=== PATIENT | female | born 1945 | race Caucasian/White ===

== ENCOUNTER → 2019-11-13 | Outpatient (CLI) | payer MEDICARE, OTHER ==
[2019-11-13 10:37] LABS: CLARITY,URINE CLEAR; COLOR,URINE YELLOW; GLUCOSE, URINE (UA) NEGATIVE (NEGATIVE); PROTEIN,URINE NEGATIVE (NEGATIVE)
[2019-11-13 10:38] LABS: BACTERIA,URINE LARGE /HPF; BILIRUBIN,URINE NEGATIVE (NEGATIVE); KETONES,URINE NEGATIVE (NEGATIVE); LEUKOCYTE ESTERASE ,URINE TRACE (NEGATIVE); NITRITE,URINE NEGATIVE (NEGATIVE); RBC,URINE RARE /HPF
== END ==
LOC: LAB FS 09:47
PROVIDERS: ATTEND Family Medicine
DX: R30.9 Painful micturition, unspecified (principal)
CPT/HCPCS: 81000; 87077; 87088; 87186

== ENCOUNTER → 2020-05-10 | Outpatient (CLI) | payer MEDICARE, OTHER ==
[2020-05-10 08:52] LABS: BUN/CREATININE RATIO 9; CARBON DIOXIDE 27 MMOL/L (21-32); CHLORIDE 103 MMOL/L (98-107); CREATININE SERUM 0.87 MG/DL (0.60-1.30); GFR ESTIMATED > 60; GLUCOSE 96 MG/DL (70-105); SODIUM 140 MMOL/L (135-145)
[2020-05-10 08:53] LABS: ALANINE AMINOTRANSFERASE 17 U/L (0-55); ALBUMIN 4.2 GM/DL (3.2-4.5); ALKALINE PHOSPHATASE 82 U/L (40-136); BILIRUBIN,TOTAL 0.6 MG/DL (0.1-1.0); CALCIUM 9.3 MG/DL (8.5-10.1); TOTAL PROTEIN 6.8 GM/DL (6.4-8.2)
[2020-05-10 15:08] LABS: TRIGLYCERIDES 129 MG/DL (<150); VLDL CHOLESTEROL 26 MG/DL (5-40)
[2020-05-10 15:13] LABS: CHOLESTEROL 186 MG/DL (< 200)
[2020-05-10 15:14] LABS: HDL CHOLESTEROL 52 MG/DL (40-60)
== END ==
LOC: LAB FS 08:14
PROVIDERS: ATTEND Family Medicine
DX: E78.2 Mixed hyperlipidemia (principal)
CPT/HCPCS: 36415; 80053; 80061

== ENCOUNTER 2021-12-31 19:31 | Emergency (ER) | payer MEDICARE, OTHER ==
[~2021-12-31] VITALS: Ht 154 cm; Wt 89.8 kg
--- NOTE | 2021-12-31 20:24 | ED Headache ---
General Chief Complaint: Head/Cervical Problems Stated Complaint: WONG,CHILLS,N/V Nursing Triage Note: patient verbalized since yesterday morning. states tylenol helps with the pain. states gets chills. Source: patient Exam Limitations: no limitations History of Present Illness Date Seen by Provider: Dec 31, 2021 Time Seen by Provider: 19:55 Initial Comments Patient to the ER by private conveyance with a chief complaint since 3:30 in the morning yesterday she has had headache, sweatiness, chills, fever, tremors in her arms bilaterally. She has a dry nonproductive cough some shortness of breath but no chest pain. She had some nausea and vomiting x1 episode not to be able to take her Tylenol tonight. She did not want to have another bad night like last night. No diarrhea or abdominal pain. History of lymphedema and GERD. Follows with Dr. Lee. Allergies and Home Medications Allergies Coded Allergies: No Known Drug Allergies (Unverified , 12/31/21) Patient Home Medication List Home Medication List Reviewed: Yes Review of Systems Review of Systems Constitutional: chills, fever, malaise Eyes: Denies Blindness, Denies Drainage (Subjective) Ears, Nose, Mouth, Throat: denies ear pain, denies ear discharge Respiratory: cough; No phlegm, No short of breath Cardiovascular: No chest pain, No edema Gastrointestinal: No abdominal pain, No nausea, No vomiting Genitourinary: No discharge, No dysuria Musculoskeletal: No back pain, No joint pain Past Cwfksma-Etjfev-Czexqe Hx Patient Social History Tobacco Use?: No Use of E-Cig and/or Vaping dev: No Substance use?: No Alcohol Use?: No Immunizations Up To Date Influenza Vaccine Up-to-Date: Yes; Up-to-Date First/Initial COVID19 Vaccinat: 2020 Second COVID19 Vaccination Gregory: 2020 COVID19 Vaccine Make Up Arranger: Modernabdoulaye Past Medical History Surgery/Hospitalization HX: patient verbalized lymphedema upper Physical Exam Vital Signs Vital Signs - First Documented 12/31/21 19:51 Temp 35.2 Pulse 82 Resp 20 B/P (MAP) 146/85 (105) Pulse Ox 96 O2 Delivery Room Air Capillary Refill : Less Than 3 Seconds Height, Weight, BMI Height: '" Weight: lbs. oz. kg; 37.00 BMI Method: General Appearance: WD/WN, no apparent distress HEENT: PERRL/EOMI, normal ENT inspection, TMs normal; No pharynx normal (Dry oral mucosa); other (No tenderness to palpation of the sinuses bilaterally) Neck: non-tender, full range of motion, supple, normal inspection Cardiovascular: normal peripheral pulses, regular rate, rhythm Respiratory: lungs clear, normal breath sounds, no respiratory distress, no accessory muscle use Gastrointestinal: normal bowel sounds, non tender, soft Extremities: normal capillary refill, other (Chronic lymphedema bilateral lower extremities) Psychiatric: alert, oriented x 3 Crainal Nerves: normal hearing, normal speech, PERRL Skin: normal color, warm/dry Progress/Results/Core Measures Results/Orders Lab Results Laboratory Tests Test 12/31/21 20:03 12/31/21 21:05 Range/Units Influenza Type A (RT-PCR) Not Detected Not Detecte Influenza Type B (RT-PCR) Not Detected Not Detecte SARS-CoV-2 RNA (RT-PCR) Not Detected Not Detecte White Blood Count 8.7 4.3-11.0 10^3/uL Red Blood Count 4.48 3.80-5.11 10^6/uL Hemoglobin 13.7 11.5-16.0 g/dL Hematocrit 41 35-52 % Mean Corpuscular Volume 90 80-99 fL Mean Corpuscular Hemoglobin 31 25-34 pg Mean Corpuscular Hemoglobin Concent 34 32-36 g/dL Red Cell Distribution Width 14.2 10.0-14.5 % Platelet Count 153 130-400 10^3/uL Mean Platelet Volume 9.9 9.0-12.2 fL Immature Granulocyte % (Auto) 0 % Neutrophils (%) (Auto) 79 H 42-75 % Lymphocytes (%) (Auto) 12 12-44 % Monocytes (%) (Auto) 8 0-12 % Eosinophils (%) (Auto) 0 0-10 % Basophils (%) (Auto) 1 0-10 % Neutrophils # (Auto) 6.8 1.8-7.8 10^3/uL Lymphocytes # (Auto) 1.0 1.0-4.0 10^3/uL Monocytes # (Auto) 0.7 0.0-1.0 10^3/uL Eosinophils # (Auto) 0.0 0.0-0.3 10^3/uL Basophils # (Auto) 0.0 0.0-0.1 10^3/uL Immature Granulocyte # (Auto) 0.0 0.0-0.1 10^3/uL Urine Color ORANGE Urine Clarity CLEAR Urine pH 6.0 5-9 Urine Specific Newcomb 1.015 L 1.016-1.022 Urine Protein 1+ H NEGATIVE Urine Glucose (UA) NEGATIVE NEGATIVE Urine Ketones NEGATIVE NEGATIVE Urine Nitrite POSITIVE H NEGATIVE Urine Bilirubin NEGATIVE NEGATIVE Urine Urobilinogen 1.0 < = 1.0 MG/DL Urine Leukocyte Esterase 1+ H NEGATIVE Urine RBC (Auto) 1+ H NEGATIVE Urine RBC RARE /HPF Urine WBC 10-25 H /HPF Urine Squamous Epithelial Cells 0-2 /HPF Urine Renal Epithelial Cells RARE /HPF Urine Crystals NONE /LPF Urine Bacteria FEW H /HPF Urine Casts NONE /LPF Urine Mucus NEGATIVE /LPF Urine Culture Indicated YES Sodium Level 140 135-145 MMOL/L Potassium Level 3.5 L 3.6-5.0 MMOL/L Chloride Level 108 H 98-107 MMOL/L Carbon Dioxide Level 17 L 21-32 MMOL/L Anion Gap 15 H 5-14 MMOL/L Blood Urea Nitrogen 8 7-18 MG/DL Creatinine 0.77 0.60-1.30 MG/DL Estimat Glomerular Filtration Rate 81 BUN/Creatinine Ratio 10 Glucose Level 110 H 70-105 MG/DL Calcium Level 9.0 8.5-10.1 MG/DL Corrected Calcium 9.2 8.5-10.1 MG/DL Total Bilirubin 0.8 0.1-1.0 MG/DL Aspartate Amino Transf (AST/SGOT) 28 5-34 U/L Alanine Aminotransferase (ALT/SGPT) 19 0-55 U/L Alkaline Phosphatase 67 40-136 U/L C-Reactive Protein High Sensitivity 9.63 H 0.00-0.50 MG/DL Total Protein 6.8 6.4-8.2 GM/DL Albumin 3.7 3.2-4.5 GM/DL My Orders Orders - FIGUEROA DAHL Cbc With Automated Diff (12/31/21 20:57) Comprehensive Metabolic Panel (12/31/21 20:57) Hs C Reactive Protein (12/31/21 20:57) Ua Culture If Indicated (12/31/21 20:57) Ed Iv/Invasive Line Start (12/31/21 20:58) Lactated Ringers (Lr 1000 Ml Iv Solution (12/31/21 21:00) Ondansetron Injection (Zofran Injectio (12/31/21 21:00) Urine Culture (12/31/21 21:05) Ceftriaxone 1 Gm Pre-Mix (Rocephin 1 Gm (12/31/21 22:00) Acetaminophen Tablet (Tylenol Tablet) (12/31/21 22:00) Medications Given in ED Current Medications Medications Dose Ordered Sig/Panchito Route Start Time Stop Time Status Last Admin Dose Admin Acetaminophen 1,000 mg ONCE ONCE PO 12/31/21 22:00 12/31/21 22:01 DC 12/31/21 22:14 1,000 MG Ceftriaxone Sodium/Dextrose 50 ml @ 100 mls/hr ONCE ONCE IV 12/31/21 22:00 12/31/21 22:29 DC 12/31/21 22:14 100 MLS/HR Lactated Ringer's 1,000 ml @ 0 mls/hr Q0M ONCE IV 12/31/21 21:00 12/31/21 21:01 DC 12/31/21 21:09 0 MLS/HR Ondansetron HCl 4 mg ONCE ONCE IVP 12/31/21 21:00 12/31/21 21:01 DC 12/31/21 21:09 4 MG Vital Signs/I&O 12/31/21 12/31/21 19:51 22:49 Temp 35.2 36.9 Pulse 82 78 Resp 20 20 B/P (MAP) 146/85 (105) 147/98 Pulse Ox 96 96 O2 Delivery Room Air Room Air Blood Pressure Mean: 105 Progress Progress Note #1: Time: 21:00 Progress Note The patient's symptoms seem consistent with an upper respiratory viral/GI bug. We did offer to treat her symptoms since its on and going on for a day and versus checking some basic labs. She still has aseptic vital signs throughout her stay. The patient would like some labs and a urinalysis. She is not having any urinary symptoms but given her age its reasonable to be concerned about decreased sensitivity to urinary tract infection symptoms. We will go ahead and give her a liter of LR she does have dry oral mucosa. Progress Note #2: Time: 22:00 Progress Note Patient's symptoms have significantly improved. She is feeling much better after the Tylenol and fluids. We will send her home with antibiotics. Rocephin IV 1 g x 1 now Departure Impression Primary Impression: UTI (urinary tract infection) Qualified Codes: N30.00 - Acute cystitis without hematuria Disposition: HOME, SELF-CARE Condition: Stable Departure-Patient Inst. Decision time for Depature: 22:15 Referrals: MARICHUY LEE MD (PCP/Family) Primary Care Physician Patient Instructions: Urinary Tract Infection, Adult (DC) Add. Discharge Instructions: Drink lots of fluids. Keflex 500 mg twice daily. All discharge instructions reviewed with patient and/or family. Voiced understanding. FIGUEROA DAHL J Dec 31, 2021 20:24
[2021-12-31] MEDS ORDERED: LACTATED RINGERS 1,000 ML IV ONE (21:00)
[2021-12-31] MEDS ORDERED: ONDANSETRON 4 MG/2 ML (SDV) Z0FRAN IVP ONE (21:00)
[2021-12-31 21:23] LABS: BILIRUBIN,URINE NEGATIVE (NEGATIVE); CLARITY,URINE CLEAR; COLOR,URINE ORANGE; GLUCOSE, URINE (UA) NEGATIVE (NEGATIVE); KETONES,URINE NEGATIVE (NEGATIVE); LEUKOCYTE ESTERASE ,URINE 1+ (NEGATIVE); NITRITE,URINE POSITIVE (NEGATIVE); PROTEIN,URINE 1+ (NEGATIVE)
[2021-12-31 21:28] LABS: BASOPHILS % (AUTO) 1 % (0-10); EOSINOPHILS % (AUTO) 0 % (0-10); HEMATOCRIT 41 % (35-52); HEMOGLOBIN 13.7 g/dL (11.5-16.0); LYMPHOCYTES % (AUTO) 12 % (12-44); MEAN CORPUSCULAR HEMOGLOBIN 31 pg (25-34); MEAN CORPUSCULAR HGB CONC 34 g/dL (32-36); MEAN CORPUSCULAR VOLUME 90 fL (80-99); MEAN PLATELET VOLUME 9.9 fL (9.0-12.2); MONOCYTES # (AUTO) 0.7 10^3/uL (0.0-1.0); MONOCYTES % (AUTO) 8 % (0-12); NEUTROPHILS # (AUTO) 6.8 10^3/uL (1.8-7.8); NEUTROPHILS % (AUTO) 79 % (42-75); PLATELET COUNT 153 10^3/uL (130-400); WHITE BLOOD COUNT 8.7 10^3/uL (4.3-11.0)
[2021-12-31 21:32] LABS: BACTERIA,URINE FEW /HPF; RBC,URINE RARE /HPF; SQUAMOUS EPITHELIAL CELL,UR 0-2 /HPF
[2021-12-31 21:33] LABS: RENAL EPITHELIAL CELLS,URINE RARE /HPF
[2021-12-31 21:39] LABS: ALBUMIN 3.7 GM/DL (3.2-4.5); BILIRUBIN,TOTAL 0.8 MG/DL (0.1-1.0); CREATININE SERUM 0.77 MG/DL (0.60-1.30); POTASSIUM 3.5 MMOL/L (3.6-5.0); TOTAL PROTEIN 6.8 GM/DL (6.4-8.2)
[2021-12-31] MEDS ORDERED: ACETAMINOPHEN 500 MG TAB (TYLENOL) PO ONE (22:00)
[2021-12-31] MEDS ORDERED: cefTRIAXone 1 GM PRE-MIX 50 ML IV ONE (22:00)
[2021-12-31 22:49] VITALS: BP 147/98
== END 2021-12-31 22:49 | disposition home or self-care (01) ==
LOC: EDUNIT# 19:31 → ER 19:33
DX: N39.0 Urinary tract infection, site not specified (principal); Z20.822 Contact with and (suspected) exposure to COVID-19
CPT/HCPCS: 36415; 80053; 81000; 85025; 86141; 87077; 87088; 87186; 87636

== ENCOUNTER → 2022-02-01 | Outpatient (CLI) | payer MEDICARE, OTHER | LOC: LABNPT 15:34 | PROVIDERS: ATTEND Registered Nurse Emergency | DX: N39.0 Urinary tract infection, site not specified (principal); F41.1 Generalized anxiety disorder; R03.0 Elevated blood-pressure reading, without diagnosis of hypertension | CPT/HCPCS: 87077; 87088; 87186 ==

== ENCOUNTER → 2022-02-08 | Outpatient (CLI) | payer MEDICARE, OTHER | LOC: LABNPT 14:29 | PROVIDERS: ATTEND Family Medicine | DX: N10 Acute pyelonephritis (principal) | CPT/HCPCS: 87077; 87088; 87186 ==